=== PATIENT | male | born 2000 | race Two or more races ===

== ENCOUNTER 2023-03-09 23:37 | Emergency (ER) | payer OTHER ==
[2023-03-09 23:51] VITALS: BP 130/80; O2SAT 99
--- NOTE | 2023-03-09 23:55 | ED Physician Documentation ---
PD HPI URI - Stated complaint Stated Complaint: DIARRHEA/THROAT/HEAD PX - Chief complaint Chief Complaint: General - History obtained from History obtained from: Patient - History of Present Illness Timing - onset: How many days ago (2-3 days of diarrhea, iwth symptoms of malaise, scrathcy throat, aches for couple days prior to that. Feeling worse with the diarrhea now.) Timing duration: Days Timing details: Gradual onset, Still present Associated symptoms: Chills, Sore throat, NVD. No: Fever, Chest pain, Dyspnea Contributing factors: No: Sick contact, Travel, Immunocompromised Similar symptoms before: Has not had sx before Review of Systems Constitutional: denies: Fever, Chills Nose: denies: Rhinorrhea / runny nose, Congestion Throat: reports: Sore throat Respiratory: denies: Cough GI: reports: Nausea, Diarrhea. denies: Vomiting, Bloody / black stool : denies: Dysuria Skin: denies: Rash Neurologic: reports: Generalized weakness. denies: Focal weakness, Near syncope PD PAST MEDICAL HISTORY - Past Medical History Past Medical History: No Cardiovascular: None, Pulmonary embolism Neuro: None Endocrine/Autoimmune: None GI: None : None HEENT: None Psych: None Musculoskeletal: None Derm: None - Past Surgical History Past Surgical History: No - Present Medications Home Medications: Ambulatory Orders Medication Instructions Recorded Confirmed Diphenoxylate/Atropine [Lomotil] 1 each PO QID PRN #12 tablet 03/10/23 Ibuprofen [Motrin] 600 mg PO TID PRN #20 tab 03/10/23 Ondansetron Odt [Zofran] 4 mg TL Q6H PRN #5 tablet 03/10/23 - Allergies Allergies/Adverse Reactions: Allergies Allergy/AdvReac Type Severity Reaction Status Date / Time No Known Drug Allergies Allergy Verified 03/09/23 23:41 - Living Situation Living Arrangement: reports: At home - Social History Does the pt smoke?: No Smoking Status: Never smoker Does the pt drink ETOH?: No Does the pt have substance abuse?: No - Immunizations Immunizations are current?: Yes PD ED PE NORMAL - Vitals Vital signs reviewed: Yes - General General: Alert and oriented X 3, No acute distress, Well developed/nourished - HEENT HEENT: Moist mucous membranes, Pharynx benign - Neck Neck: Supple, no meningeal sign, No adenopathy - Cardiac Cardiac: RRR, No murmur - Respiratory Respiratory: Clear bilaterally - Abdomen Abdomen: Soft, Non tender - Derm Derm: Normal color, Warm and dry - Extremities Extremities: Normal ROM s pain Results - Vitals Vitals: Oxygen O2 Source Room air PD Medical Decision Making - ED course Complexity details: considered differential (general malaise, aches, nausea and diarrhea would mainly suggest viral syndrome. symptoms have tapered some. He does not feel he needs IV fluids/meds. Given PO. ), d/w patient Departure - Departure Disposition: 01 Home, Self Care Clinical Impression: Viral illness, Diarrhea Condition: Stable Record reviewed to determine appropriate education?: Yes Follow-Up: [facility]TONIET[facility] Murry [Provider Group] Prescriptions: Diphenoxylate/Atropine [Lomotil] 1 each PO QID PRN #12 tablet PRN Reason: Diarrhea Ibuprofen [Motrin] 600 mg PO TID PRN #20 tab PRN Reason: Pain Ondansetron Odt [Zofran] 4 mg TL Q6H PRN #5 tablet PRN Reason: Nausea / Vomiting Comments: Small frequent fluids and bland food. With diarrhea, carbohydrates/starches are commonly advocated such as [place] rice and cereals and breads. Other food as tolerated. For your headache and pains, I would suggest some ibuprofen 600 mg 3 times daily with food for the next several days or so. For the diarrhea, you can use Lomotil 1 tablet every 4 times a day if needed for diarrhea. It can be used 2 tablets at a time if not helping with 1 tablet. I know you do not have nausea really at this time but sometimes there will be with "stomach flu" so I prescribed some nausea medicine if needed. Off work tomorrow to have time for improvement. Hydrate well. I sent your prescriptions to the [facility]. I would anticipate improvement and resolution over the next 2 to 3 days. Recheck if persisting diarrhea beyond that time as there could be reason for looking for more other reasons causes such as bacterial enteritis or such. At this point would presume more of a prolonged viral illness. Return to the ER if you have high fevers, repetitive vomiting, bloody stools, localized pain that persists or other concerns. Forms: PCP List, Activity restrictions Discharge Date/Time: 03/10/23 01:10
[2023-03-10] MEDS: DIPHENOX/ATROPINE 2.5/0.025 MG TABLET PO STA (00:56)
[2023-03-10] MEDS: IBUPROFEN 600 MG TABLET PO STA (00:56)
[2023-03-10] MEDS: ACETAMINOPHEN 500 MG TABLET PO STA (00:57)
== END 2023-03-10 01:10 | disposition home or self-care (01) ==
LOC: ED 23:37
DX: R19.7 Diarrhea, unspecified (principal); B34.9 Viral infection, unspecified
CPT/HCPCS: 99283; A9270

== ENCOUNTER 2023-10-07 13:33 | Outpatient (CLI) | payer OTHER ==
--- NOTE | 2023-10-07 16:58 | Ultrasound Report ---
PROCEDURE: Abdomen Limited INDICATIONS: HEPATOMEGALY TECHNIQUE: Real-time focused scanning was performed of the abdomen, with image documentation. COMPARISONS: None. FINDINGS: Liver: Liver is normal in size at 12.6 cm craniocaudad and homogeneous in echotexture, diffusely hyp erechoic consistent with fatty infiltration that appears relatively prominent. Gallbladder: No gallstones, sludge, wall thickening or pericholecystic edema. Biliary ducts: Intrahepatic bile ducts are non-dilated. Extrahepatic bile duct caliber measures 4.9 mm. Normal is 6-7 mm or less in diameter, or 10 mm or less post-cholecystectomy. Pancreas: Visualized portions of the pancreas are sonographically normal. Right kidney: Normal in size and echotexture. Right kidney measures 10.3 cm long. No hydronephrosis or nephrolithiasis. No solid masses. No complex renal cystic lesions which require follow-up. IVC: Intrahepatic inferior vena cava is patent. Miscellaneous: No free abdominal fluid. IMPRESSION: The liver is normal in size, but there is prominent fatty infiltration throughout the liver. No gallb ladder disease or biliary distention is found. Reviewed by: Brown Shin MD on 10/07/2023 4:57 PM PDT Approved by: Brown Shin MD on 10/07/2023 4:57 PM PDT Station ID: [id number]
== END 2023-10-07 13:34 | disposition home or self-care (01) ==
LOC: DI 13:33
PROVIDERS: ATTEND Internal Medicine
DX: K76.0 Fatty (change of) liver, not elsewhere classified (principal)